=== PATIENT | male | born 1940 | race Caucasian/White ===

== ENCOUNTER 2017-08-21 20:19 | Emergency (ER) | payer MEDICARE ==
[2017-08-21 20:20] VITALS: PULSE 102; BMI 34.1
--- NOTE | 2017-08-21 20:24 | C.PDOC ---
History Of Present Illness Patient was brought in by EMS from long term for respiratory distress and found to be hypoxic . Patient was intubated and became asystolic, CPR was initiatEd, he received 1 amp of epi with ROSC. Patient arrived to the ER intubated in PEA, CPR initiated. Patient was intubated with a 7.5 moldovan ET tube . Pt also with neck collar on for unknown reason. Son at bed side. Time Seen by Provider: 08/21/17 20:23 History Per: EMS History/Exam Limitations: clinical condition Onset/Duration Of Symptoms: Hrs Current Symptoms Are (Timing): Worse Initiating Event: Other (Not known) Current Respiratory Medications: See Home Med List Severity: Severe Pain Scale Rating Of: 10 Associated Symptoms: Fever, Ankle/Leg Swelling Reports Recently: Seen In ED, Treated By A Physician, Hospitalized Recent travel outside of the [place]: No Additional History Per: EMS Past Medical History Reviewed: Historical Data, Nursing Documentation, Vital Signs Vital Signs: Last Vital Signs Temp 103.8 F H 08/21/17 21:00 Pulse 133 H 08/21/17 21:02 Resp 14 08/21/17 21:02 BP 80/50 L 08/21/17 21:02 Pulse Ox 95 08/21/17 21:02 - Medical History PMH: Atrial Fibrillation, Cardia Arrhythmia, HTN, Hypercholesterolemia, Peripheral Edema - [facility] Procedures ASSISTANCE WITH RESPIRATORY VENTILATION, >96 HRS, CPAP (07/08/17) INJECT/INFUSE ELECTROLYT (07/26/15) INJECT/INFUSE NEC (07/26/15) INSERTION OF FEEDING DEVICE INTO STOMACH, PERC APPROACH (07/08/17) INSPECTION OF UPPER INTESTINAL TRACT, ENDO (07/08/17) INTRODUCTION OF NUTRITIONAL INTO UP GI, VIA OPENING (07/08/17) Family History: States: No Known Family Hx - Social History Hx Tobacco Use: No Hx Alcohol Use: No Hx Substance Use: No - Immunization History Hx Tetanus Toxoid Vaccination: No Hx Influenza Vaccination: No Hx Pneumococcal Vaccination: No Review Of Systems Review Of Systems: ROS cannot be obtained secondary to pt's inabilty to answer questions. Physical Exam - Physical Exam Appears: In Acute Distress Skin: Warm, Dry Head: Normacephalic Eye(s): bilateral: Other (pupils fixed and dilated) Throat: Other (ET tube in place) Neck: Trachea Midline Chest: Symmetrical Cardiovascular: Rhythm Irregular, Other (Tachycardic(post epi and CPR)) Respiratory: Decreased Breath Sounds, No Rales, Rhonchi (Diffuse), No Wheezing Gastrointestinal/Abdominal: Soft, No Distention, Other (Peg tube in place) Back: Normal Inspection Extremity: Pedal Edema (Bilateral), Other (poor peripheral vascular venous stasis skin changes) Extremity: Bilateral: Atraumatic Neurological/Psych: Other (intubated) Gait: Unable To Assess ED Course And Treatment - Laboratory Results Result Diagrams: 08/21/17 20:51 08/21/17 20:51 ECG: Interpreted By Me, Viewed By Me ECG Rhythm: Atrial Fibrillation (brady39), Nonspecific Changes Pulse Ox Interpretation: Normal (95) Progress Note: Blood work, EKG, CXR, cultures, and urinalysis ordered. Tylenol, nebulizer treatment, dextrose, vancomycin, and piperacillin administered. Patient again in PEA, CPR reinitiated; 2 amps of epi given and pulse restored. see all code sheets. Pt pronounced at 9:36 PM. Son at bedside and aware Critical Care Time - Critical Care Note Total Time (in mins): 80 Documented critical care: time excludes all time spent performing seperately billable procedures. Disposition Counseled Patient/Family Regarding: Studies Performed, Diagnosis - Disposition Disposition: WITH WITHOUT AUTOPSY Disposition Time: 20:24 Condition: Forms: [facility] ([place]) - Clinical Impression Clinical Impression: Sepsis, Cardiac arrest - Scribe Statement The provider has reviewed the documentation as recorded by the Scribe Humberto Lockett All medical record entries made by the Scribe were at my direction and personally dictated by me. I have reviewed the chart and agree that the record accurately reflects my personal performance of the history, physical exam, medical decision making, and the department course for this patient. I have also personally directed, reviewed, and agree with the discharge instructions and disposition.
[2017-08-21] MEDS ORDERED: Sodium Bicarbonate (8.4%) 50 Meq Syringe ONE ×2 (20:30)
[2017-08-21] MEDS ORDERED: Piperacillin/Tazobact 3.375 gm 100 ML IVPB STA (20:40)
[2017-08-21 20:41] VITALS: TEMP 103.8
[2017-08-21] MEDS ORDERED: Vancomycin 1 GM 1 GM/250 ML BAG IVPB ONE ×2 (20:45→21:10)
[2017-08-21 21:01] LABS: VENOUS BLOOD GAS BASE EXCESS -0.8 mmol/L (0.0-2.0); VENOUS BLOOD GAS PCO2 106 mmHg (40-60); VENOUS BLOOD PH 7.09 (7.32-7.43)
[2017-08-21 21:03] VITALS: BP 80/50; PULSE 133; RESP 14; O2SAT 95
[2017-08-21 21:03] LABS: BASO # 0.5 K/uL (0.0-0.2); BASO % 1.4 % (0.0-2.0); EOS # 0.3 K/uL (0.0-0.7); HEMATOCRIT 35.4 % (35.0-51.0); LYMPH # 15.2 K/uL (1.0-4.3); LYMPH % 42.7 % (20.0-40.0); MEAN CELL VOLUME 99.3 fL (80.0-94.0); MEAN CORPUSCULAR HEMOGLOBIN 30.3 pg (27.0-31.0); MEAN CORPUSCULAR HGB CONC 30.5 g/dL (33.0-37.0); MEAN PLATELET VOLUME 12.1 fL (7.2-11.7); MONO # 3.5 K/uL (0.0-0.8); MONO % 9.9 % (0.0-10.0); NRBC % 0.4 % (0.0-2.0); PLATELET COUNT 165 K/uL (130-400); RED CELL DISTRIBUTION WIDTH 15.4 % (11.5-14.5)
[2017-08-21] MEDS ORDERED: Piperacillin/Tazobact 3.375 gm 100 ML IVPB ONE (21:07)
[2017-08-21] MEDS ORDERED: Albuterol-Ipratrop 3 mg / 0.5 (3 ml) UD ONE (21:09)
[2017-08-21 21:14] LABS: WHITE BLOOD COUNT 35.6 K/uL (4.8-10.8)
[2017-08-21 21:19] LABS: INR 1.7
[2017-08-21 21:31] LABS: POTASSIUM 4.8 mmol/L (3.6-5.2)
[2017-08-21 21:33] LABS: BILIRUBIN,TOTAL 0.7 mg/dL (0.2-1.3)
[2017-08-21 21:34] LABS: ALB/GLOB RATIO 0.7 (1.0-2.1); CALCIUM 7.8 mg/dl (8.6-10.4); PHOSPHOROUS 6.4 mg/dL (2.5-4.5); TOTAL PROTEIN 6.1 g/dL (6.3-8.3)
[2017-08-21 21:35] LABS: MAGNESIUM 2.9 mg/dL (1.6-2.3)
[2017-08-21 21:37] LABS: RBC URINE 5 /hpf (0-3); TRANSITIONAL EPITHIAL < 1 /hpf (0-3); URINE BACTERIA OCC (<OCC); URINE BILIRUBIN NEGATIVE (NEGATIVE); URINE BLOOD 1+ (NEGATIVE); URINE COLOR Amber (YELLOW); URINE GLUCOSE (UA) NORMAL (Normal); URINE KETONE TRACE mg/dL (NEGATIVE); URINE LEUKOCYTE ESTERASE 1+ Leu/uL (Negative); URINE PROTEIN 2+ mg/dL (NEGATIVE); WBC URINE 12 /hpf (0-5)
[2017-08-21] MEDS: Albuterol-Ipratrop 3 mg / 0.5 (3 ml) UD IH SCH ×2 (21:51→21:52)
[2017-08-21 23:31] LABS: EOSINOPHIL 1 % (0-4); METAMYELOCYTE 4 % (0-0); MYELOCYTE 3 % (0-0); NEUTROPHIL 36 % (50-75); REACTIVE LYMPHOCYTES 6 % (0-0); TOTAL CELLS COUNTED 100
[2017-08-21 23:32] LABS: SMUDGE CELLS PRESENT
[2017-08-21 23:33] LABS: LARGE PLATELETS PRESENT
--- NOTE | 2017-08-23 12:51 | CARD ---
APPROVED REPORT EKG Measurement Heart [id number] <Conclusion> Idioventricular rhythm at the rate of 48 Left axis deviation Right bundle branch block Abnormal ECG
== END 2017-08-22 00:03 ==
LOC: C.ER 20:19
DX: A41.9 Sepsis, unspecified organism (principal); I46.9 Cardiac arrest, cause unspecified
CPT/HCPCS: 31500; 80053; 81001; 82803; 83735; 84100; 84145; 85025; 85610; 85730; 87040; 87086; 87149; 87181; 87205; 93005; 96374; 96375; 99285; J0171; J2543; J3370; J7060